=== PATIENT | female | born 1970 | race Two or more races ===

== ENCOUNTER 2023-09-03 19:41 | Emergency (ER) | payer MEDICAID ==
[~2023-09-03] VITALS: Ht 152.4 cm; Wt 78.2 kg
[2023-09-03 20:09] VITALS: BP 135/73; PULSE 71; RESP 14; TEMP 98.1; O2SAT 99
[2023-09-03] MEDS: dexamethasone sod phosphate 10mg/ml inj IM STA (20:19)
[2023-09-03] MEDS: ketorolac trometh. 30mg/ml inj. IM ONE (21:26)
[2023-09-03] MEDS: cyclobenzaprine 10mg tablet PO ONE (21:26)
[2023-09-03] MEDS ORDERED: CYCL-1 PO (22:31)
== END 2023-09-03 22:42 | disposition home or self-care (01) ==
LOC: ER 19:41 → EDBD 19:41 → ER 22:42
DX: M54.50 Low back pain, unspecified (principal)
CPT/HCPCS: 72100; 96372; 99284; J1100; J1885